=== PATIENT | male | born 1970 | race African-American/Black ===

== ENCOUNTER 2017-02-03 23:48 | Observation (INO) | payer MEDICAID, MEDICARE, OTHER ==
[~2017-02-03] VITALS: Ht 182.9 cm; Wt 99.0 kg
[~2017-02-03 23:48] MED LIST: AMOX875T PO; CIPR0.3S LEFT EAR; TRAZ100 PO; WELL150T PO
[2017-02-04] VITALS: BP 138/82; PULSE 100; RESP 18; RESP 24; O2SAT 100; O2SAT 96
[2017-02-04] MEDS ORDERED: NITROGLYCERIN 2% OINT 1 GM PACKET TOP ONE (00:15)
[2017-02-04] MEDS ORDERED: SODIUM CHLORIDE 0.9% FLUSH 10 ML FLUSH IVF PRN (00:15)
[2017-02-04] MEDS ORDERED: ASPIRIN 81 MG CHEW TAB PO ONE (00:15)
[2017-02-04] MEDS: NITROGLYCERIN 0.4 MG SL 25 TABS/BTL SL SCH ×3 (00:20→00:49)
--- NOTE | 2017-02-04 00:37 | RADRPT ---
EXAM DATE/TIME: 02/04/2017 00:33 [place] COMPARISON: No previous studies available for comparison. INDICATIONS : Chest pain. MEDICAL HISTORY : None. SURGICAL HISTORY : Pacemaker. ENCOUNTER: Initial ACUITY: 1 day PAIN SCORE: 0/10 LOCATION: Bilateral chest FINDINGS: The lungs are clear without infiltrate, nodule, or mass. There is no appreciable pleural effusion fo r technique. Heart and mediastinum are unremarkable. Left subclavian transvenous pacer wires are pre sent with tips in the right atrium and right ventricle. CONCLUSION: No acute cardiopulmonary disease. Marquis Reardon MD on February 04, 2017 at 0:36 Board Certified Radiologist. This report was verified electronically.
[2017-02-04 01:07] LABS: AUTOMATED NEUTROPHIL # 9.1 TH/MM3 (1.8-7.7); BASOPHIL # 0.1 TH/MM3 (0-0.2); BASOPHIL % 0.5 % (0.0-2.0); EOSINOPHIL % 0.3 % (0.0-4.0); HEMATOCRIT 48.6 % (39.0-51.0); HEMO FLAGS DIFF FINAL; LYMPH % 14.5 % (9.0-44.0); LYMPHOCYTE # 1.7 TH/MM3 (1.0-4.8); MEAN CELL VOLUME 91.5 FL (80.0-100.0); MEAN CORPUSCULAR HEMOGLOBIN 31.3 PG (27.0-34.0); MEAN CORPUSCULAR HGB CONC 34.2 % (32.0-36.0); MONO % 7.6 % (0.0-8.0); NEUT % 77.1 % (16.0-70.0); PLATELET COUNT 201 TH/MM3 (150-450); RED BLOOD COUNT 5.31 MIL/MM3 (4.50-5.90); RED CELL DISTRIBUTION WIDTH 14.2 % (11.6-17.2); WHITE BLOOD COUNT 11.8 TH/MM3 (4.0-11.0)
[2017-02-04 01:18] LABS: APTT (PATIENT) 28.6 SEC (24.3-30.1); INTERNATIONAL NORMALIZED RATIO 0.9 RATIO; PROTHROMBIN TIME - PATIENT 10.3 SEC (9.8-11.6)
[2017-02-04 01:42] LABS: ALT (GPT) 32 U/L (12-78); ANION GAP 11 MEQ/L (5-15); AST (GOT) 28 U/L (15-37); BICARBONATE 28.3 MEQ/L (21.0-32.0); BLOOD UREA NITROGEN 16 MG/DL (7-18); CHLORIDE 102 MEQ/L (98-107); GLOMERULAR FILTRATION RATE 61 ML/MIN (>89); MAGNESIUM 1.8 MG/DL (1.5-2.5); SODIUM (NA) 141 MEQ/L (136-145)
[2017-02-04 02:03] LABS: ALKALINE PHOSPHATASE 65 U/L (45-117); CREATINE KINASE 269 U/L (39-308); TOTAL BILIRUBIN ADULT 0.6 MG/DL (0.2-1.0)
[2017-02-04 02:15] LABS: CKMB 1.8 NG/ML (0.5-3.6)
--- NOTE | 2017-02-04 02:27 | PD ---
HPI Chief Complaint: Chest Pain Time Seen by Provider: 00:07 Travel History International Travel<30 days: No Contact w/Intl Traveler<30days: No Traveled to known affect area: No History of Present Illness HPI The patient is a 46 year old male who presents to the [facility] emergency department with a history of not feeling well over the last 2 weeks. He reports that he's been having problems with a sensation of heartburn. The patient reports that the heartburn occurs at night and has made him feel short of breath requiring him to sit up because of the reflux. He reports that he has also felt dizzy when he goes from sitting to standing. The reason that he decided to come in today was that he developed chest pain 2 days ago. He reports that the pain is in the left side of his chest. The patient reports that the pain is also in his back and is sharp in character. He reports that the pain comes and goes and lasts for approximately 10 minutes at a time. He reports that he has generalized weakness associated with this. He reports that he's had nausea and the last time that he vomited was on . The patient denies having any diarrhea. He reports that recently he has been having problems with constipation although he did move his bowels today. He reports having some dyspnea with exertion. He reports that he has chronic lower extremity edema, however this has been improved compared to previously. I review of systems the patient incidentally also reports having urinary frequency for the last few months. The patient denies having a primary care physician. The patient reports that he does have a history of cardiac disease with a history of collapsing related to a cardiac abnormality requiring pacemaker placement. The patient denies having any prior history of myocardial infarction, however he does report having a history of congestive heart failure. Otherwise on review of systems, the patient denies having any recent fevers, cough, congestion, neck pain, abdominal pain, or neurologic symptoms. The patient reports that he is supposed to be on multiple medications, however he lost his disability insurance and has not been on his medications for months. 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 Aranda, history of congestive heart failure, cardiac arrhythmia, COPD, anxiety disorder, hypertension, heart valve disease, obesity, polyclonal gammopathy, Periodontal disease, B12 deficiency. Anxiety: Yes Depression: Yes Congestive Heart Failure: Yes COPD: Yes Diabetes: Yes Patient Takes Glucophage: Yes Diminished Hearing: No Gastrointestinal Disorders: Yes (CHRONIC RECURRENT DIARRHEA) Headaches: Yes Hypertension: Yes Sleep Apnea: Yes Tetanus Vaccination: Unknown Influenza Vaccination: Yes Past Surgical History Narrative Surgical The patient's past surgical history is significant for pacemaker placement, bone marrow biopsy, thoracentesis. Surgical History: No Previous Surgery Body Medical Devices: PACEMAKER Cardiac Surgery: Yes (PACEMAKER IMPLANT) Oral Surgery: Yes Social History Alcohol Use: Yes (Occ glass of wine. ) Tobacco Use: Yes (08/25-1&08/25 PPD) Substance Use: Yes (CRACK ) Allergies-Medications (Allergen,Severity, Reaction): Coded Allergies: Codeine (Verified Allergy, Severe, Hives, 02/03/17) Tylenol #3 (Verified Allergy, Mild, 02/03/17) Reported Meds & Prescriptions Reported Meds & Active Scripts Active No Active Prescriptions or Reported Medications Review of Systems Except as stated in HPI: all other systems reviewed are Neg General / Constitutional: No: Fever Eyes: No: Visual changes HENT: Positive: Lightheadedness, No: Headaches Cardiovascular: Positive: Chest Pain or Discomfort, Dyspnea on exertion Respiratory: Positive: Shortness of Breath, No: Cough Gastrointestinal: Positive: Nausea, Vomiting, Constipation, Changes in Bowel Habits, Indigestion, No: Diarrhea, Abdominal Pain, Hematemesis, Hematochezia, Loss of Appetite Genitourinary: No: Dysuria Musculoskeletal: No: Pain Skin: No Rash Neurologic: Positive: Dizziness, No: Weakness, Focal Abnormalities, Change in Mentation, Slurred Speech, Sensory Disturbance Psychiatric: No: Depression Endocrine: No: Polydipsia Hematologic/Lymphatic: No: Easy Bruising Physical Exam Narrative General: The patient is a well-developed well-nourished male in no acute distress Head and Neck exam: Head is normocephalic atraumatic. Eyes: EOMI, pupils are equal round and reactive to light. Nose: Midline septum with pink mucous membranes Mouth: Dentition unremarkable. Moist mucus membranes. Posterior oropharynx is not erythematous. No tonsillar hypertrophy. Uvula midline. Airway patent. Neck: No palpable lymphadenopathy. No nuchal rigidity. No thyromegaly. Cardiovascular: Regular rate and rhythm without murmurs, gallops, or rubs. No pulse deficit to the extremities on simultaneous auscultation and palpation of his radial artery. Lungs: Clear to auscultation bilaterally. No wheezes, rhonchi, or rales. Abdomen: Soft, without tenderness to palpation in all 4 quadrants of the abdomen. No guarding, rebound, or rigidity. No tenderness on palpation of McBurney's point. Normal bowel sounds are audible. Negative [place] sign. Extremities: No clubbing or cyanosis. The patient has 1+ pitting edema bilateral lower extremities. 2+ pulses in all 4 extremities. No calf pain on palpation. Back: No spinous process tenderness to palpation. No costovertebral angle tenderness to palpation. Neurologic Exam: Grossly nonfocal. Skin Exam: No rash noted. Intact skin that is warm and dry. Data Data Last Documented VS Vital Signs Date Time Temp Pulse Resp B/P Pulse Ox O2 Delivery O2 Flow Rate FiO2 02/04/17 00:00 100 Nasal Cannula 2 02/04/17 00:00 18 02/04/17 00:00 100 138/82 Orders Electrocardiogram (02/04/17:14) B-Type Natriuretic Peptide (02/04/17:14) Ckmb (Isoenzyme) Profile (02/04/17:) Complete Blood Count With Diff (02/04/17:) Comprehensive Metabolic Panel (02/04/17:) Magnesium (Mg) (02/04/17:14) Prothrombin Time / Inr (Pt) (02/04/17:) Act Partial Throm Time (Ptt) (02/04/17:) Troponin I (02/04/17:) Lipase (02/04/17:14) Chest, Single Ap (02/04/17:14) Ecg Monitoring (02/04/17:14) Bilateral Bp Monitoring (02/04/17:14) Iv Access Insert/Monitor (02/04/17:) Oximetry (02/04/17:14) Oxygen Administration (02/04/17:14) Aspirin Chew (Aspirin Chew) (02/04/17:15) Nitroglycerin 2% Oint (Nitroglycerin 2% (02/04/17:15) Sodium Chloride 0.9% Flush (Ns Flush) (02/04/17 00:15) Nitroglycerin Sl (Nitrostat Sl) (02/04/17 00:15) CKMB (02/04/17 00:00) CKMB% (02/04/17 00:00) Admit Order (Ed Use Only) (02/04/17 02:54) Labs Laboratory Tests Test 02/04/17 00:00 White Blood Count 11.8 TH/MM3 Red Blood Count 5.31 MIL/MM3 Hemoglobin 16.6 GM/DL Hematocrit 48.6 % Mean Corpuscular Volume 91.5 FL Mean Corpuscular Hemoglobin 31.3 PG Mean Corpuscular Hemoglobin 34.2 % Concent Red Cell Distribution Width 14.2 % Platelet Count 201 TH/MM3 Mean Platelet Volume 9.2 FL Neutrophils (%) (Auto) 77.1 % Lymphocytes (%) (Auto) 14.5 % Monocytes (%) (Auto) 7.6 % Eosinophils (%) (Auto) 0.3 % Basophils (%) (Auto) 0.5 % Neutrophils # (Auto) 9.1 TH/MM3 Lymphocytes # (Auto) 1.7 TH/MM3 Monocytes # (Auto) 0.9 TH/MM3 Eosinophils # (Auto) 0.0 TH/MM3 Basophils # (Auto) 0.1 TH/MM3 CBC Comment DIFF FINAL Differential Comment Prothrombin Time 10.3 SEC Prothromb Time International 0.9 RATIO Ratio Activated Partial 28.6 SEC Thromboplast Time Sodium Level 141 MEQ/L Potassium Level 4.0 MEQ/L Chloride Level 102 MEQ/L Carbon Dioxide Level 28.3 MEQ/L Anion Gap 11 MEQ/L Blood Urea Nitrogen 16 MG/DL Creatinine 1.49 MG/DL Estimat Glomerular Filtration 61 ML/MIN Rate Random Glucose 105 MG/DL Calcium Level 9.1 MG/DL Magnesium Level 1.8 MG/DL Total Bilirubin 0.6 MG/DL Aspartate Amino Transf 28 U/L (AST/SGOT) Alanine Aminotransferase 32 U/L (ALT/SGPT) Alkaline Phosphatase 65 U/L Total Creatine Kinase 269 U/L Creatine Kinase MB 1.8 NG/ML Troponin I LESS THAN 0.02 NG/ML B-Type Natriuretic Peptide 2 PG/ML Total Protein 8.7 GM/DL Albumin 3.9 GM/DL Lipase 252 U/L MDM Medical Decision Making Medical Screen Exam Complete: Yes Emergency Medical Condition: Yes Medical Record Reviewed: Yes Interpretation(s) Last Impressions Chest X-Ray 02/04/17 0014 Signed Impressions: Service Date/Time: Saturday, February 04, 2017 00:33 - CONCLUSION: No acute cardiopulmonary disease. Marquis Reardon MD Differential Diagnosis Acid reflux, versus acute coronary syndrome, versus congestive heart failure exacerbation, versus pneumonia, versus COPD exacerbation, versus pleurisy Narrative Course During the course of the patients emergency department visit, the patients history, examination, and differential diagnosis were reviewed with the patient. The patient had IV access obtained and blood work sent for analysis. The patient was placed on a hall monitor with oximetry and blood pressure monitoring. An EKG was done on arrival. The patient's EKG shows a sinus rhythm heart rate of 99, incomplete right bundle branch block, nonspecific T- wave abnormalities, no acute ST segment elevation or depression. The patient was initially provided sublingual nitroglycerin every 5 minutes 3, aspirin 162 mg by mouth 1, nitroglycerin 1 inch of paste to the chest wall. The patients laboratory studies were reviewed and remarkable for a white count of 11.8, hemoglobin 16.6, platelets 201 with 77.1 neutrophils, CMP is remarkable for creatinine 1.49, GFR 61, CPK 269, troponin I less than 0.02, BNP is 2, lipase 252, PT 10.3, PTT 28.6 Radiology studies were reviewed and remarkable for a chest x-ray that shows no acute cardiopulmonary disease. The patient is agreeable with plan to proceed with admission to the chest pain center for rule out serial cardiac enzyme protocol and consideration of stress testing to follow. The patients results were discussed with the patient, including the plan of care. I explained that further testing and/ or monitoring is indicated based on the patients history, examination, and/ or laboratory findings. Therefore, I recommended admission for additional evaluation. The patient expressed understanding and was agreeable with this plan. The patient was admitted to the hospital in stable condition and sent to a bed under the care of the chest pain center.. Diagnosis Primary Impression: Chest pain, rule out acute myocardial infarction Admitting Information Admitting Physician Requests: Observation Scripts No Active Prescriptions or Reported Meds Jasmyne Beach MD Feb 04, 2017 02:27
[2017-02-04] MEDS ORDERED: SODIUM CHLORIDE 0.9% FLUSH 10 ML FLUSH PRN (04:00)
[2017-02-04] MEDS ORDERED: ACETAMINOPHEN 500 MG CPLT PO PRN (04:00)
[2017-02-04 05:50] LABS: CREATINE KINASE 286 U/L (39-308)
[2017-02-04 06:02] LABS: CKMB 1.7 NG/ML (0.5-3.6)
[2017-02-04 06:19] VITALS: BP 126/73; PULSE 84; RESP 18; TEMP 98; O2SAT 97
[2017-02-04 06:22] VITALS: O2SAT 97
--- NOTE | 2017-02-04 07:51 | EKG ---
Date Performed: 02/04/2017 Time Performed: 05:02:46 PTAGE: 46 years EKG: Sinus rhythm INCOMPLETE RIGHT BUNDLE BRANCH BLOCK NONSPECIFIC T-WAVE ABNORMALITY BORDERLINE ECG NO SIGNIFICANT CH LINDA FROM PRIOR ELECTROCARDIOGRAM. PREVIOUS TRACING : 05/01/2016 11.33 DOCTOR: Allan Morales Interpretating Date/Time 02/04/2017 07:50:53
--- NOTE | 2017-02-04 07:58 | EKG ---
Date Performed: 02/04/2017 Time Performed: 00:01:09 PTAGE: 46 years EKG: Sinus rhythm INCOMPLETE RIGHT BUNDLE BRANCH BLOCK NONSPECIFIC T-WAVE ABNORMALITY BORDERLINE ECG NO PREVIOUS TRACING DOCTOR: Allan Morales Interpretating Date/Time 02/04/2017 07:56:56
[2017-02-04 08:00] VITALS: BP 118/78; PULSE 84; RESP 20; TEMP 97.4; O2SAT 92
--- NOTE | 2017-02-04 08:28 | HHI.HP ---
HPI Primary Care Physician No Primary Care Physician Chief Complaint Chest pain History of Present Illness This is a 46-year-old male that presents to ED with a complaint of chest discomfort. Patient states that yesterday afternoon he started to have squeezing sensation left center of his chest. He was doing nothing strenuous when it occurred. The discomfort would last several seconds but reoccurred several times. 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 He was short of breath. No nausea. States he had KS and states that he had a pacemaker placed in 2010 secondary to his heart stopping. He states that he has seen for cardiologists over the last year or so regarding his pacemaker. He states that 2 cath lab told him something is wrong with his pacemaker and the other to say there is nothing wrong with his pacemaker. He states Dr. Sosa was his last cath lab. He saw him a little over a year ago. He states that there is something wrong with a pacemaker and he was supposed to follow back up with him however that never occurred. He states he had a heart catheterization either 2014 or 2015 either at [facility] or [facility]. He states that he was told there were no blockages in the heart catheterization. Denies recent illnesses. Denies fevers or chills. Review of Systems General: Patient denies fevers, chills recent, and recent travel HEENT: Patient denies headache, sore throat, difficulty swallowing. Cardiovascular: Has the chest discomfort as mentioned above. Denies sensation of heart beating rapidly or irregularly. No syncope. There was diaphoresis. Respiratory: He was short of breath. Denies inspirational chest discomfort. Denies coughing wheezing or hemoptysis. GI: Patient denies nausea, vomiting, diarrhea, abdominal pain, bloody stools. Musculoskeletal: Patient denies joint pain or edema. Denies calf pain or edema. Neurovascular: Patient denies numbness, tingling, weakness in extremities. Denies headache. Hematologic: Denies easy bruising. Skin: Denies rash or itching. Past Family Social History Allergies: Coded Allergies: Codeine (Verified Allergy, Severe, Hives, 02/03/17) Tylenol #3 (Verified Allergy, Mild, 02/03/17) Past Medical History Stated history of a myocardial infarction in 2008 but also states he had a normal heart catheterization either in 2014 or 2015. Bipolar disorder, anxiety , cardiac dysrhythmia with pacemaker. COPD, hyperlipidemia, hypertension, and vitamin B12 deficiency. He also has a gammopathy that is being evaluated by oncology however he was unable to keep his appointment 2 days ago. He states that his primary care physician took him off all his medications quite some time ago. Reported Medications Reported Meds & Active Scripts Active No Active Prescriptions or Reported Medications Active Ordered Medications Current Medications Medications (Trade) Dose Ordered Sig/Baldomero Route Start Time Stop Time Status Last Admin (NS Flush) 2 ml UNSCH PRN IVF 02/04/17 00:15 (NS Flush) 2 ml UNSCH PRN .XX 02/04/17 04:00 (NS Flush) 2 ml BID IV FLUSH 02/04/17 09:00 (Tylenol) 500 mg Q4H PRN PO 02/04/17 04:00 (Protonix) 40 mg DAILY PO 02/04/17 09:00 Family History His mom had a CABG. His father had an KS. Social History Patient smokes about one half pack of cigarettes daily for 25 years. He smokes occasional marijuana, last time was a week ago. Denies alcohol. Physical Exam Vital Signs Vital Signs Date Time Temp Pulse Resp B/P Pulse Ox O2 Delivery O2 Flow Rate FiO2 02/04/17 06:22 97 Nasal Cannula 3.00 02/04/17 06:19 98.0 84 18 126/73 97 02/04/17 00:00 100 Nasal Cannula 2 02/04/17 00:00 18 100 Nasal Cannula 2 02/04/17 00:00 100 24 138/82 96 Nasal Cannula 2 02/03/17 23:58 102 22 95 Room Air Physical Exam GENERAL: This is a well-nourished, well-developed patient, in no apparent distress. Patient speaks in clear complete sentences. Patient is pleasant. He is very anxious. He became upset during evaluation. HEENT: Head is atraumatic and normocephalic. Neck is supple without lymphadenopathy and trachea is midline. No JVD or carotid bruits. CARDIOVASCULAR: Regular rate and rhythm without murmurs, gallops, or rubs. RESPIRATORY: Chest wall is tender a little left of the sternum which he stated to me that it was a same discomfort however he told Dr. Wheatley that that was not the same discomfort. Clear to auscultation. Breath sounds equal bilaterally. No wheezes, rales, or rhonchi. Chest wall is nontender. No use of accessory muscles. GASTROINTESTINAL: Abdomen is nontender, nondistended. Abdomen soft. No obvious pulsatile mass or bruit. No CVA tenderness. Strong femoral pulses bilaterally. Normal bowel sounds in all quadrants. MUSCULOSKELETAL: Patient is moving upper and lower extremities freely. No calf tenderness or edema, no Homans sign. Strong pulses in upper and lower extremities. NEUROLOGICAL: Patient is alert and oriented. Cranial nerves 2-12 are grossly intact. No focal deficits and speech is clear. SKIN: No rash and turgor is normal. Laboratory Laboratory Tests Test 02/04/17 02/04/17 00:00 04:45 White Blood Count 11.8 Red Blood Count 5.31 Hemoglobin 16.6 Hematocrit 48.6 Mean Corpuscular Volume 91.5 Mean Corpuscular Hemoglobin 31.3 Mean Corpuscular Hemoglobin 34.2 Concent Red Cell Distribution Width 14.2 Platelet Count 201 Mean Platelet Volume 9.2 Neutrophils (%) (Auto) 77.1 Lymphocytes (%) (Auto) 14.5 Monocytes (%) (Auto) 7.6 Eosinophils (%) (Auto) 0.3 Basophils (%) (Auto) 0.5 Neutrophils # (Auto) 9.1 Lymphocytes # (Auto) 1.7 Monocytes # (Auto) 0.9 Eosinophils # (Auto) 0.0 Basophils # (Auto) 0.1 CBC Comment DIFF FINAL Differential Comment Prothrombin Time 10.3 Prothromb Time International 0.9 Ratio Activated Partial 28.6 Thromboplast Time Sodium Level 141 Potassium Level 4.0 Chloride Level 102 Carbon Dioxide Level 28.3 Anion Gap 11 Blood Urea Nitrogen 16 Creatinine 1.49 Estimat Glomerular Filtration 61 Rate Random Glucose 105 Calcium Level 9.1 Magnesium Level 1.8 Total Bilirubin 0.6 Aspartate Amino Transf 28 (AST/SGOT) Alanine Aminotransferase 32 (ALT/SGPT) Alkaline Phosphatase 65 Total Creatine Kinase 269 286 Creatine Kinase MB 1.8 1.7 Troponin I LESS THAN 0.02 LESS THAN 0.02 B-Type Natriuretic Peptide 2 Total Protein 8.7 Albumin 3.9 Lipase 252 Result Diagram: 02/04/17 0000 02/04/17 0000 Imaging Last 48 hours Impressions Chest X-Ray 02/04/17 0014 Signed Impressions: Service Date/Time: Saturday, February 04, 2017 00:33 - CONCLUSION: No acute cardiopulmonary disease. Marquis Reardon MD Course EKGs have sinus rhythm with incomplete right bundle much block. No significant ST segment depressions or elevations. Assessment and Plan Assessment and Plan * Atypical chest pain: Patient is having serial cardiac enzymes and EKGs for ruling out purposes. He reports a normal heart catheterization either in 2014 or 2016. We will attempt to obtain these records. There will be no further cardiac workup if this is accurate. He is concerned with his pacemaker. We have called the [employer] [facility] rep to interrogate the pacemaker. * Tobacco abuse: Patient has been counseled on importance of smoking cessation. Barron Gtz Feb 04, 2017 08:28
[2017-02-04] MEDS ORDERED: SODIUM CHLORIDE 0.9% FLUSH 10 ML FLUSH IV FLUSH SCH (09:00)
[2017-02-04] MEDS ORDERED: PANTOPRAZOLE SOD 40 MG DELAYED RELEASE TAB PO SCH (09:00)
--- NOTE | 2017-02-04 10:48 | HHI.DCPOC ---
Discharge Care Plan Diagnosis: (1) Chest pain, atypical (2) Tobacco abuse (3) Pacemaker Goals to Promote Your Health * To prevent worsening of your condition and complications * To maintain your health at the optimal level Directions to Meet Your Goals Take your medications as prescribed Follow your dietary instruction Follow activity as directed Keep your appointments as scheduled Take your immunizations and boosters as scheduled If your symptoms worsen call your PCP, if no PCP go to Urgent Care Center or Emergency Room Smoking is Dangerous to Your Health. Avoid second hand smoke Call the 24-hour hour crisis hotline for domestic abuse at Barron Gtz Feb 04, 2017 10:48
--- NOTE | 2017-02-06 14:28 | EKG ---
Date Performed: 02/04/2017 Time Performed: 08:18:08 PTAGE: 46 years EKG: Sinus rhythm NORMAL ECG PREVIOUS TRACING : 02/04/2017 05.02 Since previous tracing, no significant change noted DOCTOR: Saqib Wheatley Interpretating Date/Time 02/06/2017 14:25:48
== END 2017-02-04 11:07 | disposition home or self-care (01) ==
LOC: NEPE 23:48 → NEDA 02-04 02:56 → NEPFCDU 02-04 05:42
PROVIDERS: ADMIT Internal Medicine Interventional Cardiology; ATTEND Internal Medicine Interventional Cardiology
DX: R07.89 Other chest pain (principal); I11.0 Hypertensive heart disease with heart failure; I50.9 Heart failure, unspecified; I25.2 Old myocardial infarction; E11.9 Type 2 diabetes mellitus without complications; J44.9 Chronic obstructive pulmonary disease, unspecified; E66.9 Obesity, unspecified; F17.210 Nicotine dependence, cigarettes, uncomplicated; Z88.6 Allergy status to analgesic agent; Z88.5 Allergy status to narcotic agent; Z95.0 Presence of cardiac pacemaker; Z68.29 Body mass index [BMI] 29.0-29.9, adult
CPT/HCPCS: 71010; 80053; 82550; 82552; 83690; 83735; 83880; 84484; 85025; 85610; 85730; 93005; 99285; G0378